=== PATIENT | female | born 2000 | race Two or more races ===

== ENCOUNTER 2023-03-23 17:12 | Emergency (ER) | payer SELFPAY ==
[2023-03-23 17:24] VITALS: BP 109/69; PULSE 88; RESP 18; TEMP 98.7; BMI 25.2
[2023-03-23] MEDS ORDERED: ACETAMINOPHEN 500 MG TABLET (FP) ONE (18:06)
[2023-03-23] MEDS: ACETAMINOPHEN 500 MG TABLET (FP) PO ONE (18:09)
[2023-03-23 18:36] LABS: BASO % 0.3 % (0-2.0); EOS % 1.9 % (0-4.5); HEMATOCRIT 38.9 % (32.4-45.2); HEMOGLOBIN 13.3 GM/dL (10.7-15.3); LYMPH % 26.9 % (8-40); MCH 29.4 pg (25.7-33.7); MCHC 34.2 g/dl (32.0-36.0); MEAN CELL VOLUME 85.9 fl (80-96); MEAN PLT VOLUME 8.2 fl (7.5-11.1); MONO % 9.5 % (3.8-10.2); NEUT % 61.4 % (42.8-82.8); PLATELET COUNT 236 10^3/uL (134-434); RBC 4.53 M/mm3 (3.60-5.2); RDW 13.2 % (11.6-15.6); WHITE BLOOD COUNT 7.4 K/mm3 (4.0-10.0)
[2023-03-23 18:39] LABS: EPI CELLS >36 /uL (0-25.1); HYALINE CASTS 1 /uL (0-3.1); PH,URINE 6.5 (5.0-8.0); URINE APPEARANCE CLOUDY; URINE BACTERIA 393 /uL (0-1359); URINE BILIRUBIN NEGATIVE (NEGATIVE); URINE COLOR YELLOW; URINE GLUCOSE (UA) NEGATIVE (NEGATIVE); URINE KETONE NEGATIVE (NEGATIVE); URINE LEUK ESTERASE TRACE (NEGATIVE); URINE NITRITE NEGATIVE (NEGATIVE); URINE PROTEIN NEGATIVE (NEGATIVE); URINE UROBILINOGEN 0.2 mg/dL (0.2-1.0); URINE WBC 40 /uL (0-25.8)
[2023-03-23 18:59] LABS: BLOOD UREA NITROGEN 5.2 mg/dL (7-18); CALCIUM 8.8 mg/dL (8.5-10.1)
[2023-03-23 19:00] LABS: ALBUMIN 3.3 g/dl (3.4-5.0)
[2023-03-23 19:02] LABS: CREATININE 0.4 mg/dL (0.55-1.3)
[2023-03-23 19:04] LABS: BILIRUBIN,TOTAL 0.2 mg/dL (0.2-1); TOT PROT 6.9 g/dl (6.4-8.2)
== END 2023-03-23 21:38 | disposition home or self-care (01) ==
LOC: JER 17:12 → JERFT 17:12
DX: O99.511 Diseases of the respiratory system complicating pregnancy, first trimester (principal); R05.9 Cough, unspecified; R09.81 Nasal congestion; O99.891 Other specified diseases and conditions complicating pregnancy; R50.9 Fever, unspecified; O26.891 Other specified pregnancy related conditions, first trimester; R10.30 Lower abdominal pain, unspecified; Z3A.12 12 weeks gestation of pregnancy; Z20.822 Contact with and (suspected) exposure to COVID-19
CPT/HCPCS: 0241U-QW; 36415; 76817-TC; 80053; 81003; 84702; 84703; 85025; 87086; 99284-25